=== PATIENT | female | born 2000 | race Caucasian/White ===

== ENCOUNTER 2020-03-25 01:50 | Emergency (ER) | payer SELFPAY ==
[2020-03-25 01:53] VITALS: BP 120/64; PULSE 95; RESP 16; TEMP 36.8; O2SAT 98; BMI 21.8
--- NOTE | 2020-03-25 04:15 | ED.NAVMDI ---
HPI - Nausea/Vomiting/Diarrhea General Chief complaint: Nausea/Vomiting/Diarrhea Stated complaint: 5 months preg - vomiting Time Seen by Provider: 03/25/20 03:55 Source: patient Mode of arrival: ambulatory Limitations: no limitations History of Present Illness HPI Narrative: This is a 19-year-old female, gravid, , 19 weeks and 6 days, denies any vaginal bleeding, cramping but states that she has been struggling with nausea and vomiting throughout her entire with intermittent benefit from Zofran and vitamin B6. She denies any associated fevers, chills, diarrhea, urinary pain/burning/frequency. Related Data Previous Rx's Medication Instructions Recorded nitrofurantoin monohyd/m-cryst 100 mg PO Q12H 7 Days #14 cap 03/25/20 [Macrobid] ondansetron HCl [Zofran] 4 mg PO Q8H PRN #10 tab 03/25/20 Allergies Allergy/AdvReac Type Severity Reaction Status Date / Time No Known Allergies Allergy Verified 03/25/20 01:52 [No Known Allergies*] Review of Systems Review of Systems: Pertinent positives and negatives as stated in HPI 10 point review of systems otherwise negative. PMFSH Past Medical History Source: nursing notes reviewed Medical History Depression Social History Social History Advance Directives: No Physical Exam Vital Signs: Vital Signs: Last Vital Signs Temp 98.2 F 03/25/20 01:53 Pulse 95 03/25/20 01:53 Resp 16 03/25/20 01:53 BP 120/64 03/25/20 01:53 Pulse Ox 98 03/25/20 01:53 Body Mass Index 21.8 VITAL SIGNS: Reviewed. GENERAL: Well developed, well nourished, in no acute distress. HEAD: Normocephalic/atraumatic, EYES: PERRLA, EOMI intact without pain, no nystagmus/pallor/icterus noted EARS: Ext canals without abnormality, TMs non-bulging and non-erythematous NOSE: Nares patent bilateral OROPHARYNX: no oral lesions noted, posterior pharynx clear and non-erythematous without noted tonsillar enlargement/erythema/exudates NECK: Supple, no adenopathy LUNGS: Normal breath sounds. No adventitious sounds or accessory muscle use. SpO2<98> CARDIOVASCULAR: Regular rate and rhythm without noted murmurs, no JVD or lower extremity edema. ABDOMEN: Soft, non-tender, non-distended with bowel sounds. No rigidity. No guarding. No palpable masses or hernias noted MUSCULOSKELETAL: No tenderness, deformities, or effusions noted on gross inspection. EXTREMITIES: No cyanosis, clubbing or edema. SKIN: Inspection of the skin reveals no rashes, ulcerations, jaundice, pallor, or petechiae. NEUROLOGIC: Alert and oriented x 4. Strength and sensation to light touch were grossly intact x 4. FHT-140bpm Course Course Course Narrative: This is a 19-year-old female with history and clinical presentation consistent with hyperemesis and doubt any source of infection, however will evaluate for UTI and provide IV resuscitation as well as nausea control. Patient sees OB in [facility] and has been having difficulty in getting transportation to her appointments. On review all investigations patient has a UTI and received 1 g of Rocephin here in the emergency department and has had great resolution of her nausea and vomiting after receiving IV fluid resuscitation with Zofran. She states she is feeling much improved and understands that she will be discharged on a course of antibiotics for her UTI and that it is strongly recommended that she follow-up with her primary care provider. MDM - Nausea/Vomiting/Diarrhea Lab Data Labs: Lab Results 03/25/20 03/25/20 Range/Units 04:57 04:57 Urine Color VERONICA Urine Appearance HAZY Urine pH 6.5 (5.0-8.0) Ur Specific [place] 1.025 (1.005-1.025) Urine Protein TRACE (NEG-TRACE) MG/DL Urine Glucose (UA) NEG (NEG) MG/DL Urine Ketones >=80 (NEG) MG/DL Urine Blood NEG (NEG) Urine Nitrite NEG (NEG) Ur Leukocyte Esterase 2+ H (NEG) Urine RBC 1-4 (0) /HPF Urine WBC 5-9 H (0-4) /HPF Ur Squamous Epith Cells 2+ /LPF Urine Bacteria 2+ /LPF Hyaline Casts 1-4 /LPF Urine Mucus 2+ /LPF Urine Yeast 1+ /HPF Urine Test POSITIVE H (NEGATIVE) Discharge Plan Discharge Clinical Impression: Dehydration UTI (urinary tract infection) Qualifiers: Urinary tract infection type: site unspecified Hematuria presence: without hematuria Qualified Code(s): N39.0 - Urinary tract infection, site not specified Patient Disposition: Home, Self-Care Instructions: Hyperemesis Gravidarum (ED), Urinary Tract Infection in (ED) Additional Instructions: Resume all medications that have been prescribed for your nausea and vomiting during . You should no longer have difficulties since your underlying UTI is being treated. Follow-up with your systems software specialist at your earliest convenience by calling their office today. Prescriptions: New nitrofurantoin monohyd/m-cryst [Macrobid] 100 mg capsule 100 mg PO Q12H 7 Days Qty: 14 RF: 0 ondansetron HCl [Zofran] 4 mg tablet 4 mg PO Q8H PRN (Reason: nausea and vomiting) Qty: 10 RF: 0 Referrals: Harpreet Martins MD [Primary Care Provider] - 2 days (Re-evaluation and outpatient treatment for hyperemesis and UTI)
[2020-03-25] MEDS: 0.9 % Sodium Chloride 2,000 ML 999 ML IV (04:54)
[2020-03-25] MEDS: ondansetron HCL 4 MG/2 ML VIAL IVPUSH (04:54)
[2020-03-25 05:04] LABS: Appearance Urine HAZY; Color Urine AMBER; Glucose Urine UA NEG (NEG); Leukocyte Esterase Urine 2+ (NEG); Nitrite Urine NEG (NEG); PH 6.5 (5.0-8.0); Specific Gravity - Urine 1.025 (1.005-1.025); UPreg QC Valid YES; Urine Blood NEG (NEG); Urine Ketones >=80 MG/DL (NEG); Urine Pregnancy POSITIVE (NEGATIVE); Urine Protein TRACE MG/DL (NEG-TRACE)
[2020-03-25 05:14] LABS: Bacteria Urine 2+ /LPF; Mucus Urine 2+ /LPF; Squamous Epithelial Cell Urine 2+ /LPF
--- NOTE | 2020-03-25 05:40 | PC.NURSE ---
pt feeling less nausea following zofran, able to lay in bed and rest. hear tones 140 bpm via dopper.
--- NOTE | 2020-03-25 05:43 | PC.NURSE ---
confirmed that MD Hendrix does not want lactic or blood cultures prior to ceftriaxone for UTI.
[2020-03-25] MEDS: cefTRIAXone sodium 1 GM in 0.9 % Sodium Chloride 50 ML IV (05:51)
[2020-03-25 07:06] VITALS: BP 101/62; PULSE 66; RESP 16; O2SAT 98
== END 2020-03-25 07:15 | disposition home or self-care (01) ==
PROVIDERS: Emergency Provider Student in an Organized Health Care Education/Training Program; PCP Internal Medicine
DX: O21.1 Hyperemesis gravidarum with metabolic disturbance (principal); O23.42 Unspecified infection of urinary tract in pregnancy, second trimester; Z3A.19 19 weeks gestation of pregnancy
CPT/HCPCS: 81001; 81025; 87086; 96361; 96365; 96375; 99283; 99284; J0696; J2405

== ENCOUNTER 2021-07-19 16:07 | Emergency (ER) | payer BC, MEDICAID, SELFPAY ==
--- NOTE | ~2021-07-19 | XR_ITS ---
EXAMINATION: XR ankle LT min 3V, XR foot LT min 3V CLINICAL INFORMATION: Twisted foot/ankle COMPARISON: Left foot radiographs TECHNIQUE: 3 views of the foot and 2 views of the ankle XR/XR foot LT min 3V FINDINGS/IMPRESSION: No fracture or dislocation. Joint spaces are maintained. No cortical erosion. No joint effusion. Soft tissues are unremarkable.
--- NOTE | ~2021-07-19 | XR_ITS ---
EXAMINATION: XR ankle LT min 3V, XR foot LT min 3V CLINICAL INFORMATION: Twisted foot/ankle COMPARISON: Left foot radiographs TECHNIQUE: 3 views of the foot and 2 views of the ankle XR/XR ankle LT min 3V FINDINGS/IMPRESSION: No fracture or dislocation. Joint spaces are maintained. No cortical erosion. No joint effusion. Soft tissues are unremarkable.
[2021-07-19 16:21] VITALS: BP 105/74; PULSE 67; RESP 19; TEMP 36.6; O2SAT 98; BMI 20.3
--- NOTE | 2021-07-19 17:30 | ED_ITS ---
HPI - Extremity Injury (Lower) General Chief Complaint: Extremity Injury, Lower Stated Complaint: foot pain Time Seen by Provider: 07/19/21 17:30 Source: patient Mode of arrival: ambulatory Limitations: no limitations History of Present Illness HPI Narrative: Patient is a 21 year old female presenting to the emergency department today with left foot and ankle pain. Patient states that she was playing with her mothers dogs when she accidentally twisted her left foot and ankle. Patient states that she is concerned it is broken because previously she broke the same foot in a similar fashion, playing soccer, and that fracture had to be found via MRI. Patient denies hitting her head with the incident. Patient denies any dizziness, lightheadedness, abdominal pain, nausea, vomiting, fever, chills, bl urry vision, double vision, loss of vision, chest pain, difficulty breathing, shortness of breath, back pain, night sweats, pain with urination, increased urinary frequency, increased urinary urgency, blood inher urine or stool, syncope or a near syncopal episode, bowel incontinence, bladder incontinence, bowel retention, bladder retention, or any other complaints at this time. MD complaint: ankle injury and foot injury Onset (ago): day(s) (1) Type of Injury: inversion Place: home Severity: mild Severity scale (1-10): 3 Relieving factors: nothing Exacerbating factors: weight bearing and movement Context: fall Associated symptoms: ambulatory Other symptoms: none Related Data Previous Rx's Medication Instructions Recorded nitrofurantoin 100 mg PO Q12H 7 Days #14 cap 03/25/20 monohydrate/macrocrystals 100 mg capsule (Macrobid) ondansetron HCl 4 mg tablet 4 mg PO Q8H PRN #10 tab 03/25/20 (Zofran) Allergies Allergy/AdvReac Type Severity Reaction Status Date / Time No Known Allergies Allergy Verified 03/25/20 01:52 [No Known Allergies*] Review of Systems Constitutional: Constitutional: Reports no additional constitutional complaints, Denies chills, Denies fever(s) and Denies night sweats Eyes: Eyes: Reports no additional eye complaints, Denies blurry vision, Denies change in vision, Denies diplopia, Denies eye discharge, Denies loss of vision and Denies eye pain ENT: Denies dizziness Cardiovascular: Cardiovascular: Reports no additional cardiovascular complaints, Denies chest pain, Denies lightheadedness, Denies Loss of Consciousness and Denies dyspnea Respiratory: Respiratory: Reports no additional respiratory complaints and Denies dyspnea Gastrointestinal: Gastrointestinal: Reports no additional gastrointestinal complaints, Denies abdominal pain, Denies melena, Denies hematochezia, Denies change in bowel habits and Denies change in stool character Genitourinary: Genitourinary: Denies hematuria, Denies urinary frequency, Denies dysuria, Denies urinary incontinence, Denies urinary hesitancy and Denies urinary urgency Musculoskeletal: Musculoskeletal: Reports no additional musculoskeletal complaints, Denies numbness and Denies tingling Comments: left foot and ankle pain Neurologic: Denies dizziness, Denies loss of vision, Denies numbness and Denie s tingling Psychiatric: Psychiatric: Reports no additional psychiatric complaints Endocrine: Endocrine: Reports no additional endocrine complaints Hematologic/Lymphatic: Hematologic/Lymphatic: Reports no additional hematologic/lymphatic complaints Allergic/Immunologic: Allergic/Immunologic: Reports no additional allergic/immunologic complaints PMFSH Past Medical History Attestation statement: The following information was validated with the patient. Source: old records reviewed Medical History Depression Social History Social History Advance Directives: No Advance Directives Information Provided: No Patient : No Physical Exam Vital Signs: Vital Signs: Last Vital Signs Temp 98 F 07/19/21 16:21 Pulse 67 07/19/21 16:21 Resp 19 07/19/21 16:21 BP 105/74 07/19/21 16:21 Pulse Ox 98 07/19/21 16:21 BMI result Body Mass Index 20.3 Const: General: cooperative, no acute distress, alert and awake Nutritional Appearance: well nourished Orientation/consciousness: patient oriented x3 Limitations: no limitations HEENT: Head: Yes normal to inspection and Yes atraumatic Ears: hearing grossly normal bilaterally and external ears normal General nose exam: Normal external nose present, no nasal discharge noted and no epistaxis Face and sinus: Yes normal facial exam, No abrasion and No laceration Mouth: Normal oral and palatal mucosa present, no drooling and no muffled voice Eyes: General: appearance normal, both eyes and all related structures Periorbital: periorbital findings normal Eyelids: Yes eyelids normal Conjunctivae: conjunctivae normal Pupils: Equal, round and reactive pupils present EOM: EOMs intact bilaterally Neck: Neck: Yes normal visual inspection, Yes full ROM and Yes no lymphadenopathy Chest: Chest palpation & inspection: normal inspection of the chest Resp: Effort & Inspection: normal respiratory effort and able to speak in complete sentences Auscultation: clear to auscultation bilaterally Cardio: Rate: regular rate Rhythm: regular rhythm GI: Inspection: Yes normal to inspection Neuro: General: patient oriented x3 and moves all extremities Cranial nerves: Yes Equal, round and reactive pupils present Cognition (Neuro): normal cognition Motor exam (neuro): 5/5 motor strength present throughout Sensory Exam: Normal double simultaneous stimulation for sensation Coordination: [id number] test normal Extrem: General: Yes normal to inspection, Yes full ROM and Yes capillary refill normal Psych: Appearance: grossly normal Mental Status: mental status grossly normal Affect: normal affect Attitude: cooperative Thought process: Normal thought process present Thought content: Normal thought content present Insight: Good insight present (Psych) MDM - Extremity Injury (Lower) MDM Narrative Medical decision making narrative: Patient is a 21 year old female presenting to the emergency department today with left foot and ankle pain. Patient's physical exam was unremarkable. Patient's left foot and ankle x-rays showed no acute process. I explained my physical exam findings as well as all test results to the patient. I answered all questions asked by the patient. Patient's left foot was placed in a walking boot. Patient was given crutches with crutch instructions. Patient's PMS of the left lower extremity was intact prior to and after walking boot placement. I stressed the importance of the patient taking her medication as prescribed. I stressed the importance of the patient following up with her primary care provider and an orthopedist. I stressed the importance of the patient returning to the emergency department immediately if her symptoms were to worsen or if she were to develop any dizziness, shortness of breath, difficulty breathing, chest pain, blurry vision, loss of vision, nausea, vomiting, abdominal pain, fever, chills, back pain, or any other complaints. Patient verbalized agreement and understanding with this treatment plan and discharge. Differential Diagnosis Differential diagnosis: Likely ankle sprain and strain and ankle fracture Medical Records Attestation: I reviewed the patient's medical records. Imaging Data ankle and foot x-ray (left): Attestation: I personally reviewed and interpreted this imaging study as follows: My impression: No acute fracture. Radiologist's impression: EXAMINATION: XR ankle LT min 3V, XR foot LT min 3V CLINICAL INFORMATION: Twisted foot/ankle? COMPARISON: Left foot radiographs? TECHNIQUE: 3 views of the foot and 2 views of the ankle? ? XR/XR foot LT min 3V FINDINGS/IMPRESSION: ? No fracture or dislocation. ? Joint spaces are maintained. ? No cortical erosion. ? No joint effusion. ? Soft tissues are unremarkable. Dictated By: Stacy Oviedo MD Signed By: Electronically signed by Stacy Oviedo MD 07/19/21 [id number] Discharge Plan Discharge Clinical Impression: Pain, foot, Ankle pain, Ankle strain, Strain of foot Patient Disposition: Home, Self-Care Instructions: Crutch Instructions (ED), Ankle Strain (ED), Walking Boot (ED) Additional Instructions: Call to schedule a follow up appointment with an Orthopedic provider. Follow up with your primary care provider. Return to the emergency department immediately if your symptoms worsen or if you develop any dizziness, shortness of breath, difficulty breathing, chest pain, blurry vision, loss of vision, nausea, vomiting, abdominal pain, fever, chills, back pain, or any other complaints. Prescriptions: No Action nitrofurantoin monohyd/m-cryst [Macrobid] 100 mg capsule 100 mg PO Q12H 7 Days Qty: 14 0RF Rx Instructions: must administer with a meal/food ondansetron HCl [Zofran] 4 mg tablet 4 mg PO Q8H PRN (Reason: nausea and vomiting) Qty: 10 0RF Referrals: [facility] [Provider Group] Print Language: B[place]udian
== END 2021-07-19 18:10 | disposition home or self-care (01) ==
PROVIDERS: Emergency Provider Internal Medicine
DX: S96.912A Strain of unspecified muscle and tendon at ankle and foot level, left foot, initial encounter (principal); X50.1XXA Overexertion from prolonged static or awkward postures, initial encounter; Y93.89 Activity, other specified; Y92.017 Garden or yard in single-family (private) house as the place of occurrence of the external cause; Y99.9 Unspecified external cause status
CPT/HCPCS: 73610; 73630; 99283; 99284

== ENCOUNTER 2025-01-06 16:30 | Emergency (ER) | payer OTHER, SELFPAY ==
--- NOTE | ~2025-01-06 | XR_ITS ---
CLINICAL HISTORY: pain, felt a pop 4 view right knee Comparison: None provided Findings: Bones intact. No dislocations. No joint effusion. Radiopaque density over the posterior thigh likely external to the patient. IMPRESSION: 1. No acute findings. This document has been electronically signed by: Baldo Cespedes MD on 01/06/2025 18:52:05
--- NOTE | 2025-01-06 16:51 | ED_ITS ---
HPI - General Adult General Chief complaint: Extremity Injury, Lower Stated complaint: right knee pain Time Seen by Provider: 01/06/25 19:56 Source: patient Limitations: no limitations History of Present Illness ED Provider: Bonita Mckeon PA-C HPI narrative: 24-year-old female presents with right knee pain. Patient states she was on the playground with her family, she turned the wrong way and felt a ?pop? in the right knee. Limited flexion and extension secondary to pain. Related Data Previous Rx's ?Medication ?Instructions ?Recorded nitrofurantoin 100 mg PO Q12H 7 days #14 ca ps 03/25/20 monohydrate/macrocrystals 100 mg capsule (Macrobid) ondansetron HCl 4 mg tablet 4 mg PO Q8H PRN nausea and 03/25/20 (Zofran) vomiting #10 tabs Allergies Allergy/AdvReac Type Severity Reaction Status Date / Time No Known Allergies (No Known Allergy Verified 01/06/25 16:59 Allergies*) Review of Systems Review of Systems: Yes all other systems are reviewed and are negative Constitutional: Constitutional: Denies fatigue and Denies fever(s) Musculoskeletal: Musculoskeletal: Reports arthralgias and Denies joint swelling Endocrine: Endocrine: Denies fatigue PMF Past Medical History Attestation statement: The following information was validated with the patient. Medical History Depression Social History Social History Advance Directives: No Advance Directives Information Provided: No Physical Exam ED Vital Signs: Vital Signs - 24 hr 01/06/25 16:55 01/06/25 18:04 Temperature 97.6 F Pulse Rate 81 80 Respiratory Rate 16 16 Blood Pressure 131/75 119/85 Pulse Oximetry 97 100 Oxygen Delivery Method Room Air Room Air BMI result Body Mass Index 24.8 Const Other: Alert well-appearing Orientation/consciousness: patient oriented x3 Resp Effort & Inspection: normal respiratory effort Cardio Other: Normal peripheral perfusion Skin Other: Warm dry no rash Neuro Other: Antalgic gait General: patient oriented x3, no focal motor deficits and CN's II-XI intact bilaterally Extrem Other: No swelling no deformity, able to flex and extend, although limited secondary to pain she will bear weight to some degree Psych Other: Cooperative Course Course Course Narrative: This is a rapid medical exam performed by Kisha Justin NP: Additional HPI, ROS, PE not included below will be deferred to primary provider. Patient is a 24y/o F, was running with son yesterday and heard a pop, pain with ambulation but able to ambulate. Plan: xray Medical Decision Making Medical Decision Making MDM Narrative: 24-year-old female presents with right knee pain. Patient states she was on the playground with her family, she turned the wrong way and felt a ?pop? in the right knee. Limited flexion and extension secondary to pain. No chronic issues History: Per patient I have considered the following differential diagnoses: Fracture, dislocation, sprain, contusion Plan: X-ray ordered from triage, the patient has a strain. We will treat accordingly I have independently reviewed the following tests: X-ray right knee:Findings: Bones intact. No dislocations. No joint effusion. Radiopaque density over the posterior thigh likely external to the patient. IMPRESSION: 1. No acute findings. Differential Diagnosis Differential Diagnoses: The differential diagnosis associated with the presentation includes See medical decision-making Admission/Observation Consideration of admission/observation: Escalation of care including admission/observation considered Not applicable Radiology Impression Discussion of test interpretation with radiology: I have reviewed the radiologist's reading. Discharge Plan Discharge Clinical Impression: Right knee sprain Patient Disposition: Home, Self-Care Instructions: Knee Sprain (ED), P.R.I.C.E. Treatment (ED) Additional Instructions: The x-ray of the knee reveals no fracture or dislocation, you have a sprain. See home care instructions. Use the knee immobilizer in the crutches, bear weight as tolerated. You can use [id number] ibuprofen 600 mg taken every 6 hours with food, alternated with [id number] Tylenol 1000 mg taken every 8 hours. Follow up with primary care as needed. Prescriptions: No Action nitrofurantoin monohyd/m-cryst [Macrobid] 100 mg capsule 100 mg PO Q12H 7 Days Qty: 14 0RF Rx Instructions: must administer with a meal/food ondansetron HCl [Zofran] 4 mg tablet 4 mg PO Q8H PRN (Reason: nausea and vomiting) Qty: 10 0RF Stand Alone Forms: Work/School Release Print Language: Cambodian
[2025-01-06 16:55] VITALS: BP 131/75; PULSE 81; RESP 16; TEMP 36.4; O2SAT 97; BMI 24.8
--- OUTSIDE RECORDS SUMMARY | 2025-01-06 17:47 | XMS_ITS | Clinical Summary ---
Author Organization [facility] Address [address] [address] Phone Care Team Providers Care Spooler Rubber Strand Name Role Phone Unavailable Primary Care Provider Unavailabl e Allergies No known active allergies Medications acetaminophen (TYLENOL) 325 mg tablet Take 650 mg by mouth every 6 (six) hours as needed for mild pain. Active albuterol 90 mcg/actuation inhaler Inhale 2 puffs into the lungs every 6 (six) hours as needed for wheezing. 1 Inhaler 1 0 Active vitamins with ferrous fumaric-Folic acid (ZAK ) 28 mg iron- 800 mcg TabIndications:Enc ounter for preconception consultation Take 1 tablet (0.8 mg total) by mouth daily. 90 tablet 3 0 Active Active Problems Problem Noted Date Diagnosed Date Encounter for preconception consultation 020 Assessment & Plan (09/22/2019 4:35 PM EDT): We discussed ways to help maximize the chance of a healthy . We also discussed how to maximize the possibility of conception. I like her to start taking a vitamin and asked her to make an appointment with women's health. Resolved Problems Problem Noted Date Diagnosed Date Resolved Date Severe episode of recurrent major depressive disorder, with psychotic features 07/04/20182019 Assessment & Plan (07/04/2018 3:40 PM EDT): Major depression with suicidal ideations and hallucinations. I suspect the patient's hallucinations are secondary to depression as opposed to having a psychotic disorder. She is currently not in a crisis state and I think she is best served by having a evaluation by psychiatry. I will have her seen by Dr. Sherman and at the same time she is working on making arrangements for longitudinal mental health care. She has a number for psychiatric crisis and has contract with me to call either crisis or office if she is to have any worsening of her symptoms such as more suicidal thoughts but she thinks she may act on. Immunizations Immunization Administration Dates Next Due DTaP, unspecified formulation 07/13/2002 ,11/18/1999,07/10/1999,11/11,1998 [id number] FORMULATION 04/15/2009 HPV,quadrivalent 09/25/2013,07/09/2011 HPV9 10/03/2014 Hepatitis A, ped/adol, 2 dose 10/03/2014, 014 Hepatitis B, unspecified formulation 02/19/1999, 1998,1998 Hib, unspecified formulation 08/12/1999, 1998,1998,07/09 INFLUENZA, SPLIT VIRUS, TRIVALENT PF 12/27/2012 INFLUENZA, SPLIT VIRUS, TRIV ALENT W/ PRESERVATIVE IM 02/25/2012,01/19/2011,01/09/2010 IPV 07/13/2002, 0,1998,07/09 Influenza Quadrivalent Prese rvative Free IM 05/21/2017,04/20/2016,02/20/2015 MMR 07/13/2002,05/23/1999 Meningococcal MCV4P 10/03/2014 Tdap 09/22/2019,08/06/2009 Varicella 10/18/2008,05/23/1999 Family History Medical History Relation Comments No Known Problems Father Relation Status Comments Brother 1 Alive Brother 2 Alive Father Alive Mother Alive Sister 1 Alive Sister 2 Alive Sister 3 Alive Social History Tobacco Use Types Packs/Day Years Used Date Smoking Tobacco: Never Smokeless Tobacco: Never Alcohol Use Standard Drinks/Week Comments Never 0 (1 standard drink = 0.6 oz pur e alcohol) Education Answer Date Recorded Are you interested in more education? Not on donell e 08/07/2022 Are you concerned about learning? Not on file 08/07/2022 No 08/07/2022 No 08/07/2022 Digital Access Answer Date Recorded No 09/08/2022 No 09/08/2022 No 09/08/2022 Reliable internet access at home? Not on file 09/08/2022 Device with a working camera? 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 Not on file Not on file Not on file Last Filed Vital Signs Vital Sign Reading Time Taken Comments Blood Pressure 112/68 09/22/2019 3:35 PM EDT Pulse 68 09/22/2019 3:35 PM EDT Temperature 36.9 C (98.5 F) 09/22/2019 3:35 PM EDT Respiratory Rate - - Oxygen Saturation 98% 09/22/2019 3:35 PM EDT Inhaled Oxygen Concentration - - Weight 59.4 kg (131 lb) 09/22/2019 3:35 PM EDT Height 160 cm (5' 2.99 ) 09/22/2019 3:35 PM EDT Body Mass Index 23.21 09/22/2019 3:35 PM EDT Plan of Treatment Health Maintenance Due Date Last Done Comments DEPRESSION SCREENING 2010 HEPATITIS C SCREENING 2016 HIV ONE-TIME SCREENING (18-65 YEARS) 2016 PAP SMEAR 2019 SMOKING STATUS SCREENING (Once After 26 Yrs) 2024 INFLUENZA VACCINE (#1) 2024 8, 04/20/2016, 02/20/2015, Additional history exists COVID-19 VACCINE (2024- season) 2024 05/04/2021 Adult Td,Tdap Booster 09/21/2029 09/22/2019, 010 HIB VACCINES Completed 08/12/1999, 05/1998, 1998, Additional history exists HEPATITIS A VACCINES Completed 10/03/2014, 09/26/19 14 HPV VACCINES Completed 10/03/2014, 09/10, 07/09/2011 MENINGOCOCCAL VACCINES (ACWY) Completed 10/03/2014 MENINGOCOCCAL VACCINES (B) Aged Out N o longer eligible based on patient's age to complete this topic PNEUMOCOCCAL VACCINES (0-49 years) Aged Out No longer eligible based on patient's age to complete this topic Medical Devices Not on file Insurance [facility] PPO EPO HMO [facility] PPO EPO Member Subscriber Plan / Payer (Ef fective 2015-Present) Name:Steph Marmolejo Relation to Subscriber:Child Name:JEANNETTE MARMOLEJO Date of :1902 (Home) Address: [address] [place], [place] Payer ID:[id number] (NAIC) Type:PPO Address: [facility] [id number] HMO [facility] Member Subscriber Plan / Payer (Ef fective 2015-Present) Name:Steph Marmolejo Relation to Subscriber:Child Name:JEANNETTE MARMOLEJO Date of :1902 (Home) Address: [address] [place], [place] Payer ID:[id number] (NA) Type:PPO Address: [facility] [id number] [facility] [place] [id number] MURILLO [facility] PPO EPO Member Subscriber Plan / Payer (Ef fective 2015-Present) Name:Steph Marmolejo Relation to Subscriber:Child Name:JALEELJEANNETTE Ferrari Date of :1902 (Home) [facility] [facility] [place] [facility] [place] [address] Payer ID:[id number] (NAIC) Type:PPO Address: [facility] [id number] HMO [address] [facility] [place] [id number] MURILLO [facility] PPO EPO Member Subscriber Plan / Payer (Ef fective 2015-Present) Name:Steph Marmolejo Relation to Subscriber:Child Name:JEANNETTE MARMOLEJO Date of :1902 (Home) Address: [address] [facility] [place] [facility] [place] [address] Payer ID:[id number] (NAIC) Type:PPO Address: [facility] [id number] [facility] Member Subscriber Plan / Payer (Ef fective 2015-Present) Name:Steph Marmolejo Relation to Subscriber:Child Name:JALEELJEANNETTE Ferrari Date of :1902 (Home) Address: [address] [place] [address] Payer ID:[id number] ([facility]) Type:PPO Address: [facility] [id number] HMO [facility] PPO EPO Member Subscriber Plan / Payer (Ef fective 2015-Present) Name:Steph Marmolejo Relation to Subscriber:Child Name:JALEELJEANNETTE Ferrari Date of :1902 (Home) Address: [address] [place], [place] Payer ID:[id number] (NAIC) Type:PPO Address: [facility] [id number] HMO [facility] PPO EPO Member Subscriber Plan / Payer (Ef fective 2015-Present) Name:Steph Marmolejo Relation to Subscriber:Child Name:VIRIDIANA MARMOLEJOUEL A Date of :1902 (Home) Address: [address] [place], [place] Payer ID:[id number] (NAIC) Type:PPO Address: [id number] HMO [facility] HMO Additional Source Comments The information contained in this document represents components of the legal health record. It is not the complete legal health record.[facility]
[2025-01-06 18:04] VITALS: BP 119/85; PULSE 80; RESP 16; O2SAT 100
--- NOTE | 2025-01-06 19:48 | PC.NURSE ---
Report received, care assumed at 1900. Pt found awake, alert, oriented and without distress noted. The pt reports localized pain to the right knee that is worse with palpation and ambulation. The pt states when standing she has difficulty straightening the knee fully s/t pain. she is awaiting primary evaluation, she was provided with an ice pack for comfort. Son who is at bedside was provided with a coloring book and crayons for entertainment
== END 2025-01-07 06:07 | disposition home or self-care (01) ==
PROVIDERS: Emergency Provider Emergency Medicine
DX: S83.91XA Sprain of unspecified site of right knee, initial encounter (principal); X50.1XXA Overexertion from prolonged static or awkward postures, initial encounter; Y93.02 Activity, running; Y92.89 Other specified places as the place of occurrence of the external cause; Y99.8 Other external cause status
CPT/HCPCS: 73564; 99283; 99284

== ENCOUNTER → 2025-01-06 17:00 | Outpatient (BNV) | payer BC, MEDICAID, SELFPAY | PROVIDERS: Visit Provider Radiology Diagnostic Radiology | DX: M25.561 Pain in right knee (principal) | CPT/HCPCS: 73564 ==